=== PATIENT | male | born 1965 | race Caucasian/White ===

== ENCOUNTER 2016-05-01 23:02 | Emergency (ER) | payer OTHER ==
[~2016-05-01] VITALS: Ht 160 cm; Wt 77.1 kg
[~2016-05-01 23:02] MED LIST: FLEXERIL10 MG PO; LIDODERM 5% P1 PATCH TD; NAPROSYN500 MG PO; VITAMIN D2000 UNI1 PO
[2016-05-02 01:43] LABS: ADD MIUA? NO; BILIRUBIN NEGATIVE; BLOOD NEGATIVE; COLOR YELLOW ((YELLOW)); GLUCOSE (STRIP) NEGATIVE; KETONES NEGATIVE; LEUKOCYTES NEGATIVE; NITRITE NEGATIVE; PH, URINE 6.5 (5-8); PROTEIN (STRIP) NEGATIVE; SPECIFIC GRAVITY 1.023 (1.000-1.030); UCUL ADDED? NO; UROBILINOGEN 0.2 MG/DL (0.2-1.0)
[2016-05-02 02:04] VITALS: BP 149/93
== END 2016-05-02 02:05 | disposition home or self-care (01) ==
LOC: RME 23:02 → EME 23:02 → RME 05-02 02:05
PROVIDERS: Physician Assistant
DX: R20.8 Other disturbances of skin sensation (principal); Z91.048 Other nonmedicinal substance allergy status; Z96.641 Presence of right artificial hip joint; Z96.642 Presence of left artificial hip joint
CPT/HCPCS: 81003; 99281; 99284

== ENCOUNTER 2017-03-01 11:18 | Emergency (ER) | payer OTHER ==
[~2017-03-01] VITALS: Ht 160 cm; Wt 77.3 kg
[2017-03-01] MEDS ORDERED: MOTRIN800 MG PO (12:08)
[2017-03-01] MEDS ORDERED: ULTRAM50 MG PO (12:08)
[2017-03-01 12:31] VITALS: BP 138/76
== END 2017-03-01 12:32 | disposition home or self-care (01) ==
LOC: EME 11:18
DX: S93.401A Sprain of unspecified ligament of right ankle, initial encounter (principal); W18.09XA Striking against other object with subsequent fall, initial encounter
CPT/HCPCS: 73630; 99281; 99284